=== PATIENT | female | born 1975 | race Caucasian/White ===

== ENCOUNTER → 2016-08-12 | Outpatient (REF) | payer BC | LOC: M LAB REF 16:31 | PROVIDERS: ATTEND Nurse Practitioner Family | DX: R19.7 Diarrhea, unspecified (principal) ==

== ENCOUNTER → 2016-08-13 | Outpatient (REF) | payer BC | LOC: M LAB REF 11:04 | PROVIDERS: ATTEND Nurse Practitioner Family | DX: R19.7 Diarrhea, unspecified (principal) ==

== ENCOUNTER → 2016-09-09 | Outpatient (REF) | payer OTHER, BC | LOC: M LAB REF 16:15 | PROVIDERS: ATTEND Physician Assistant | DX: N39.0 Urinary tract infection, site not specified (principal) ==

== ENCOUNTER → 2017-12-25 | Outpatient (CLI) | payer OTHER, BC ==
[2017-12-25 12:20] LABS: BASO # 0.1 10^3/uL (0.0-0.2); BASO % 0.8 % (0.0-1.0); EOS # 0.6 10^3/uL (0.0-0.50); EOS % 8.8 % (0.0-3.0); HEMATOCRIT 38.5 % (36.0-47.0); HEMOGLOBIN 12.4 g/dl (12.0-15.5); IMMATURE GRANULOCYTE % 0.2 % (0-3.0); LYMPH # 1.8 10^3/uL (1.5-4.5); LYMPH % 27.6 % (24.0-44.0); MEAN CORPUSCULAR HEMOGLOBIN 29.1 pg (27.0-33.0); MEAN CORPUSCULAR HGB CONC 32.2 g/dl (32.0-36.5); MEAN CORPUSCULAR VOLUME 90.4 fl (80.0-96.0); MONO # 0.4 10^3/uL (0.0-0.8); MONO % 5.8 % (0.0-5.0); NEUTROPHILS # 3.6 10^3/uL (1.8-7.7); NEUTROPHILS % 56.8 % (36.0-66.0); PLATELET COUNT, AUTOMATED 276 10^3/uL (150-450); RED BLOOD COUNT 4.26 10^6/uL (4.00-5.40); RED CELL DISTRIBUTION WIDTH 14.4 % (11.5-14.5); WHITE BLOOD COUNT 6.4 10^3/uL (4.0-10.0)
[2017-12-25 12:54] LABS: FREE T4 0.79 NG/DL (0.76-1.46); THYROID STIMULATING HORMONE 0.854 uIU/ML (0.358-3.740)
[2017-12-25 12:54] LABS: GLUCOSE, FASTING 73 MG/DL (70-100)
== END ==
LOC: M WUC 10:35
DX: R53.83 Other fatigue (principal)
CPT/HCPCS: 82947

== ENCOUNTER 2018-06-04 10:55 | Day surgery (SDC) | payer BC, OTHER ==
[~2018-06-04] VITALS: Ht 160 cm; Wt 86.2 kg
[~2018-06-04 10:55] MED LIST: ADV500INH INH; NS 1,000 ML IV SCH; PROAAER10 INH
[2018-06-04] MEDS ORDERED: LIDOCAINE 2% INJ 100 MG/5 ML SDV (FOR ANES.) As Ordered ONE (12:54)
[2018-06-04] MEDS ORDERED: PROPOFOL 200 MG/20 ML VIAL As Ordered ONE (12:54)
--- NOTE | 2018-06-04 13:58 | ROOR ---
Patient Name: Alda Rm Procedure Date: 06/04/2018 1:35 PM Date of : 1975 Age: 43 Room: [facility] Gender: Female Note Status: Finalized Procedure: Upper GI endoscopy Indications: Dysphagia Providers: Abdirashid Johnston MD Referring MD: MAURO NAVARRO NP Requesting Provider: Medicines: Monitored Anesthesia Care Complications: No immediate complications. Procedure: Pre-Anesthesia Assessment: - Prior to the procedure, a History and Physical was performed, and patient medications and allergies were reviewed. The patient is competent. The risks and benefits of the procedure and the sedation options and risks were discussed with the patient. All questions were answered and informed consent was obtained. Patient identification and proposed procedure were verified by the physician, the nurse and the anesthesiologist in the procedure room. Mental Status Examination: alert and oriented. Airway Examination: normal oropharyngeal airway and neck mobility. Respiratory Examination: clear to auscultation. CV Examination: normal. Prophylactic Antibiotics: The patient does not require prophylactic antibiotics. Prior Anticoagulants: The patient has taken no previous anticoagulant or antiplatelet agents. ASA Grade Assessment: II - A patient with mild systemic disease. After reviewing the risks and benefits, the patient was deemed in satisfactory condition to undergo the procedure. The anesthesia plan was to use monitored anesthesia care (MAC). Immediately prior to administration of medications, the patient was re-assessed for adequacy to receive sedatives. The heart rate, respiratory rate, oxygen saturations, blood pressure, adequacy of pulmonary ventilation, and response to care were monitored throughout the procedure. The physical status of the patient was re-assessed after the procedure. The Endoscope was introduced through the mouth, and advanced to the second part of duodenum. The upper GI endoscopy was accomplished without difficulty. The patient tolerated the procedure well. Findings: No endoscopic abnormality was evident in the esophagus to explain the patient's complaint of dysphagia. Biopsies were obtained from the proximal and distal esophagus with cold forceps for histology of suspected eosinophilic esophagitis. Verification of patient identification for the specimen was done by the physician and nurse using the patient's name, date and medical record number. Estimated blood loss was minimal. The Z-line was regular and was found 38 cm from the incisors. Diffuse mild inflammation characterized by erythema and granularity was found in the gastric antrum. Biopsies were taken with a cold forceps for Helicobacter pylori testing. The duodenal bulb and second portion of the duodenum were normal. Impression: - No endoscopic esophageal abnormality to explain patient's dysphagia. Biopsied. - Z-line regular, 38 cm from the incisors. - Gastritis. Biopsied. - Normal duodenal bulb and second portion of the duodenum. Recommendation: - Patient has a contact number available for emergencies. The signs and symptoms of potential delayed complications were discussed with the patient. Return to normal activities tomorrow. Written discharge instructions were provided to the patient. - Resume previous diet. - Continue present medications. - Await pathology results. - Based on the biopsy results you will receive a phone call from GI clinic in 2-3 weeks to review the pathology results AND/OR your results will be faxed to your Primary care physician. - Return to primary care physician. Abdirashid Johnston MD Abdirashid Johnston MD 06/04/2018 1:58:00 PM This report has been signed electronically. Number of Addenda: 0 Note Initiated On: 06/04/2018 1:35 PM Estimated Blood Loss: Estimated blood loss was minimal.
[2018-06-04 14:15] VITALS: BP 111/73
== END 2018-06-04 14:27 | disposition home or self-care (01) ==
LOC: M OPP 10:55
PROVIDERS: ATTEND Internal Medicine Gastroenterology
DX: K29.70 Gastritis, unspecified, without bleeding (principal); R13.10 Dysphagia, unspecified

== ENCOUNTER 2018-07-24 20:58 | Emergency (ER) | payer BC, OTHER ==
[~2018-07-24] VITALS: Ht 160 cm; Wt 86.4 kg
[~2018-07-24 20:58] MED LIST changes: -NS 1,000 ML IV SCH
[2018-07-24] MEDS ORDERED: OMEP40CA2 PO (21:05)
[2018-07-24] MEDS ORDERED: FLUT11IN INH (21:05)
[2018-07-24] MEDS ORDERED: IBUPROFEN 600 MG TAB PO ONE (22:30)
[2018-07-24] MEDS ORDERED: ONDANSETRON 4 MG ORAL DISINTEGRATING TAB (Q0162 PER 1MG) PO ONE (22:30)
[2018-07-24] MEDS ORDERED: OSELTAMIVIR PHOSPHATE 75 MG CAP (TAMIFLU) PO ONE (22:45)
[2018-07-24 22:51] LABS: INFLUENZA A AMPLIFICATION POSITIVE (NEGATIVE); INFLUENZA B AMPLIFICATION NEGATIVE (NEGATIVE)
[2018-07-24] MEDS ORDERED: OSEL75CA PO (23:10)
[2018-07-24] MEDS ORDERED: IBUP-1022 PO (23:10)
[2018-07-24] MEDS ORDERED: ZOFR4TAB16 PO (23:10)
[2018-07-24 23:19] VITALS: BP 125/62
== END 2018-07-24 23:29 | disposition home or self-care (01) ==
LOC: M ED 20:58
DX: J09.X2 Influenza due to identified novel influenza A virus with other respiratory manifestations (principal); Z20.828 Contact with and (suspected) exposure to other viral communicable diseases; J45.909 Unspecified asthma, uncomplicated; K21.9 Gastro-esophageal reflux disease without esophagitis; Z79.899 Other long term (current) drug therapy; Z79.51 Long term (current) use of inhaled steroids
CPT/HCPCS: 81001; 87086; 87502; 99283; Q0162

== ENCOUNTER 2020-04-27 17:16 | Emergency (ER) | payer BC, OTHER ==
[~2020-04-27] VITALS: Ht 160 cm; Wt 82.4 kg
[~2020-04-27 17:16] MED LIST changes: +FLUT11IN INH; +IBUP-1022 PO; +OMEP40CA97 PO; +OSEL75CA PO; +ZOFR4TAB16 PO
[2020-04-27 17:17] VITALS: BP 130/81
[2020-04-27] MEDS ORDERED: GI COCKTAIL 50ML BTL(HYOSCYAMINE/MAALOX/LIDOCAINE VISCOUS)(1:3:1) PO ONE (17:45)
== END 2020-04-27 18:44 | disposition home or self-care (01) ==
LOC: M ED 17:16
DX: S10.15XA Superficial foreign body of throat, initial encounter (principal); X58.XXXA Exposure to other specified factors, initial encounter; Y92.89 Other specified places as the place of occurrence of the external cause; Y93.89 Activity, other specified; Y99.8 Other external cause status; J45.909 Unspecified asthma, uncomplicated

== ENCOUNTER → 2020-08-09 | Outpatient (REF) | payer OTHER ==
[2020-08-09 17:37] LABS: C REACTIVE PROTEIN QUANTITATIV 0.44 MG/DL (0.00-0.30); RHEUMATOID FACTOR QUANT < 10.0 IU/ML (<15.0)
== END ==
LOC: M LAB REF 16:13
PROVIDERS: ATTEND Registered Nurse
DX: M13.0 Polyarthritis, unspecified (principal)

== ENCOUNTER → 2020-10-20 | Outpatient (REF) | payer OTHER ==
[2020-10-20 17:11] LABS: C REACTIVE PROTEIN QUANTITATIV 0.63 MG/DL (0.00-0.30); PHOSPHORUS LEVEL 3.9 MG/DL (2.5-4.9)
[2020-10-20 17:20] LABS: TOTAL 25(OH) VITAMIN D 21.9 NG/ML (30.0-100.0)
== END ==
LOC: M SFHCRHEU 15:16
PROVIDERS: ATTEND Internal Medicine
DX: R53.83 Other fatigue (principal); R79.82 Elevated C-reactive protein (CRP); R70.0 Elevated erythrocyte sedimentation rate

== ENCOUNTER → 2020-10-23 | Outpatient (CLI) | payer BC, OTHER ==
--- NOTE | 2020-10-23 14:03 | REP ---
INDICATION: PAIN. COMPARISON: None. TECHNIQUE: AP view of the pelvis with neutral and frog-lateral views of the right and left hip. FINDINGS: Pelvis is unremarkable. Hips demonstrate symmetric mild increased sclerosis along the acetabular roof with minimal joint space narrowing. There is a very small osteophyte along the right acetabular roof. 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 <Electronically signed by Cristobal Lagos > 10/23/20 [id number]
== END ==
LOC: M WUC 13:07
PROVIDERS: ATTEND Internal Medicine
DX: M25.751 Osteophyte, right hip (principal)

== ENCOUNTER → 2020-10-27 | Outpatient (CLI) | payer BC, OTHER ==
--- NOTE | 2020-10-27 11:52 | REP ---
INDICATION: DORSALGIA COMPARISON: 02/08/2014 TECHNIQUE: AP, lateral, flexion/extension, bilateral oblique, and coned-down views. FINDINGS: Alignment and lordosis is maintained. The vertebral bodies including transverse process and spinous processes are intact and normal. There is no evidence for acute fracture / compression injury or subluxation. No evidence for spondylolysis or spondylolisthesis. Endplate sclerosis and mild/moderate disc space narrowing at L5-S1. IMPRESSION: Moderate disc space narrowing at L5-S1 minimally increased from prior exam. <Electronically signed by Cristobal Lagos > 10/27/20 [id number]
== END ==
LOC: M WUC 11:17
PROVIDERS: ATTEND Internal Medicine
DX: M51.37 Other intervertebral disc degeneration, lumbosacral region (principal)

== ENCOUNTER → 2020-12-16 | Outpatient (REF) | payer BC, OTHER ==
[~2020-12-16] MED LIST changes: +OMEP40CA4 PO; -OMEP40CA97 PO
[2020-12-16 20:10] LABS: APPEARANCE, URINE HAZY (CLEAR); BACTERIA, URINE AUTO 1+ (NEGATIVE); BILIRUBIN, URINE AUTO NEGATIVE (NEGATIVE); BLOOD, URINE BLOOD 3+ (NEGATIVE); COLOR, URINE AMBER (YELLOW); GLUCOSE, URINE (UA) AUTO NEGATIVE (NEGATIVE); KETONE, URINE AUTO NEGATIVE (NEGATIVE); LEUKOCYTE ESTERASE, URINE AUTO 3+ (NEGATIVE); MUCUS, URINE SMALL (NEGATIVE); NITRITE, URINE AUTO POSITIVE (NEGATIVE); PROTEIN, URINE AUTO 1+ mg/dL (NEGATIVE); RBC, URINE AUTO 8 /HPF (0-3); SPECIFIC GRAVITY URINE AUTO 1.003 (1.002-1.035); SQUAMOUS EPITHELIAL CELL UR AU 0 /HPF (0-6); WBC, URINE AUTO 57 /HPF (0-3)
== END ==
LOC: M LAB REF 19:25
PROVIDERS: ATTEND Physician Assistant Medical
DX: N39.0 Urinary tract infection, site not specified (principal)

== ENCOUNTER → 2021-03-07 | Outpatient (REF) | payer OTHER ==
[2021-03-07 19:06] LABS: TOTAL 25(OH) VITAMIN D 31.6 NG/ML (30.0-100.0)
== END ==
LOC: M SFHCADAM 15:55
PROVIDERS: ATTEND Internal Medicine
DX: E61.1 Iron deficiency (principal); E55.9 Vitamin D deficiency, unspecified

== ENCOUNTER → 2021-08-13 | Outpatient (CLI) | payer OTHER, BC ==
[~2021-08-13] MED LIST changes: +LORA-622 PO
== END ==
LOC: M LABSMTC 09:55
PROVIDERS: ATTEND Anesthesiology
DX: Z01.812 Encounter for preprocedural laboratory examination (principal); Z20.822 Contact with and (suspected) exposure to COVID-19

== ENCOUNTER 2021-08-17 10:47 | Day surgery (SDC) | payer BC, OTHER ==
[~2021-08-17] VITALS: Ht 160 cm; Wt 83.8 kg
[~2021-08-17 10:47] MED LIST changes: +LIDOCAINE 2% 100MG/5ML SDV (FOR ANES.) As Ordered ONE; +NS 1,000 ML IV ONE; +propofoL 200 MG/20 ML VIAL As Ordered ONE
[2021-08-17] MEDS ORDERED: propofoL 200 MG/20 ML VIAL As Ordered ONE ×2 (12:47→13:11)
[2021-08-17] MEDS ORDERED: fentaNYL 100 MCG/2 ML INJECTION As Ordered ONE (12:53)
[2021-08-17 14:11] VITALS: BP 140/78
== END 2021-08-17 14:10 | disposition home or self-care (01) ==
LOC: M OPP 10:47
PROVIDERS: ATTEND Internal Medicine Gastroenterology
DX: Z12.11 Encounter for screening for malignant neoplasm of colon (principal); K57.30 Diverticulosis of large intestine without perforation or abscess without bleeding; K64.8 Other hemorrhoids; K22.89 Other specified disease of esophagus; K22.2 Esophageal obstruction; R13.10 Dysphagia, unspecified; Z91.018 Allergy to other foods
CPT/HCPCS: 43239; 43249; 45378; 88305; J3010

== ENCOUNTER 2022-11-11 12:46 | Day surgery (SDC) | payer BC, OTHER ==
[~2022-11-11] VITALS: Ht 160 cm; Wt 89.4 kg
[~2022-11-11 12:46] MED LIST changes: -FLUT11IN INH; +FLUT12AE6 INH; -LIDOCAINE 2% 100MG/5ML SDV (FOR ANES.) As Ordered ONE; +PROA1AER2 INH; -propofoL 200 MG/20 ML VIAL As Ordered ONE
[2022-11-11] MEDS ORDERED: propofoL 200 MG/20 ML VIAL As Ordered ONE (15:52)
[2022-11-11 16:35] VITALS: BP 133/68; O2SAT 98
== END 2022-11-11 17:34 | disposition home or self-care (01) ==
LOC: M OPP 12:46
PROVIDERS: ATTEND Internal Medicine Gastroenterology
DX: K20.0 Eosinophilic esophagitis (principal); K22.89 Other specified disease of esophagus; K44.9 Diaphragmatic hernia without obstruction or gangrene; K29.70 Gastritis, unspecified, without bleeding; R13.10 Dysphagia, unspecified; K22.2 Esophageal obstruction

== ENCOUNTER → 2023-02-19 | Outpatient (REF) | payer OTHER ==
[~2023-02-19] MED LIST changes: -NS 1,000 ML IV ONE
[2023-02-19 17:33] LABS: FERRITIN 16.1 NG/ML (7.3-270.7); FOLATE 15.3 NG/ML (>5.4)
[2023-02-19 17:37] LABS: PERCENT SATURATION 9.4 % (13.2-45.0)
== END ==
LOC: M LAB REF 16:39
PROVIDERS: ATTEND Internal Medicine
DX: D50.9 Iron deficiency anemia, unspecified (principal)

== ENCOUNTER → 2023-04-10 | Outpatient (REF) | payer OTHER | LOC: M SFHCWAGY 13:03 | PROVIDERS: ATTEND Nurse Practitioner Family | DX: Z12.4 Encounter for screening for malignant neoplasm of cervix (principal) | CPT/HCPCS: 87624; G0123 ==

== ENCOUNTER → 2023-07-22 | Day surgery (SDC) | payer BC, OTHER ==
[~2023-07-22] VITALS: Ht 160 cm; Wt 80.3 kg
[~2023-07-22] MED LIST changes: +IRON27TA2 PO; +LIDOCAINE 2% 100MG/5ML SDV (FOR ANES.) As Ordered ONE; +fentaNYL 100 MCG/2 ML INJECTION As Ordered ONE; +propofoL 200 MG/20 ML VIAL As Ordered ONE
[2023-07-22] MEDS: NS 1,000 ML IV ONE (06:00)
[2023-07-22 14:19] VITALS: TEMP 97.7
[2023-07-22 14:35] VITALS: BP 128/88; O2SAT 96
== END | disposition home or self-care (01) ==
LOC: M OPP 12:55
PROVIDERS: ATTEND Internal Medicine Gastroenterology
DX: K20.0 Eosinophilic esophagitis (principal); K29.70 Gastritis, unspecified, without bleeding; K31.89 Other diseases of stomach and duodenum; G47.30 Sleep apnea, unspecified; Z79.51 Long term (current) use of inhaled steroids; Z91.018 Allergy to other foods
CPT/HCPCS: 43239; 88305; J3010

== ENCOUNTER → 2024-04-13 | Outpatient (CLI) | payer BC ==
[~2024-04-13] MED LIST changes: -LIDOCAINE 2% 100MG/5ML SDV (FOR ANES.) As Ordered ONE; -fentaNYL 100 MCG/2 ML INJECTION As Ordered ONE; -propofoL 200 MG/20 ML VIAL As Ordered ONE
== END ==
LOC: M WHC 08:26
PROVIDERS: ATTEND Nurse Practitioner Family
DX: Z12.31 Encounter for screening mammogram for malignant neoplasm of breast (principal); N63.14 Unspecified lump in the right breast, lower inner quadrant

== ENCOUNTER → 2024-05-10 | Outpatient (CLI) | payer BC | LOC: M WHC 12:16 | PROVIDERS: ATTEND Nurse Practitioner Family | DX: R92.8 Other abnormal and inconclusive findings on diagnostic imaging of breast (principal); N63.14 Unspecified lump in the right breast, lower inner quadrant | CPT/HCPCS: 76642; 77065; G0279 ==

== ENCOUNTER → 2025-04-20 | Outpatient (CLI) | payer BC ==
[~2025-04-20] MED LIST changes: -ADV500INH INH; +ADVA1AER10 INH; -IBUP-1022 PO; +IBUP600T42 PO; +LORA-1164 PO; -LORA-622 PO
== END ==
LOC: M WHC 08:29
PROVIDERS: ATTEND Nurse Practitioner Family
DX: Z12.31 Encounter for screening mammogram for malignant neoplasm of breast (principal)